=== PATIENT | female | born 1940 | race Caucasian/White ===

== ENCOUNTER 2017-05-23 09:05 | Emergency (ER) | payer OTHER ==
[~2017-05-23] VITALS: Ht 167.6 cm; Wt 81.7 kg
[2017-05-23] MEDS ORDERED: TENORMIN25 MG PO (09:23)
[2017-05-23] MEDS ORDERED: ANORO ELLIPTA1 EACH INH (09:24)
[2017-05-23] MEDS ORDERED: VITAMIN B-1250 MC2 PO (09:24)
[2017-05-23 09:39] LABS: ABSOLUTE EOSINOPHILS 0.2 thou/uL (0.0-0.7); ABSOLUTE LYMPHOCYTES 2.1 thou/uL (0.8-5.3); ABSOLUTE MONOCYTES 0.8 thou/uL (0.0-1.2); ABSOLUTE NEUTROPHILS 4.4 thou/uL (1.6-8.1); BASOPHILS 0.3 %; EOSINOPHILS 2.2 %; HEMATOCRIT 39.4 % (37.0-47.0); HEMOGLOBIN 13.3 gm/dL (12.0-15.0); LYMPHOCYTES 27.8 %; MCH 29.7 pg (26.0-34.0); MCHC 33.6 g/dL (28.0-37.0); MCV 88.3 fL (80.0-100.0); MONOCYTES 10.5 %; MPV 8.2 fl. (7.2-11.1); NUCLEATED RBCS 0 /100WBC; PLATELET COUNT* 349 thou/uL (150-400); POLYS 59.2 %; RBC 4.46 mil/uL (4.20-5.00); WBC 7.4 thou/uL (4.0-11.0)
[2017-05-23 09:46] LABS: CALCIUM 9.7 mg/dL (8.5-10.1); CREATININE 0.9 mg/dL (0.6-1.3); POTASSIUM 3.8 mmol/L (3.5-5.1)
[2017-05-23 09:51] LABS: ALBUMIN 3.2 g/dL (3.4-5.0); TOTAL BILIRUBIN 0.3 mg/dL (<0.1-1.0); TOTAL PROTEIN 7.3 g/dL (6.4-8.2)
[2017-05-23 10:50] VITALS: BP 140/79
--- NOTE | 2017-05-23 16:45 | EKG ---
[place] [address] ELECTROCARDIOGRAM REPORT Name: PRASAD JOHNSON Room: [facility]#: [id number] Admission: 05/23/17 Attend Phys: Discharge: 05/23/17 Date of : 38 Report #: [id number] THIS REPORT FOR: //name// [facility] ED Test Date: 2017-05-23 Test Time: 10:12:53 Pat Name: PRASAD JOHNSON Department: Room: Gender: F Anthropology Professor: Kirk PARKER : 1940 Requested By: Adolfo Garces Order Number: [id number] MD: Pacheco Renteria Measurements Intervals [place] Rate: 74 P: 53 GA: 164 QRS: 9 QRSD: 96 T: 61 QT: 380 QTc: 422 Interpretive Statements Sinus rhythm Baseline wander in lead(s) I,aVR,aVL No previous ECG available for comparison Electronically Signed On 05-23-2017 16:45:24 GREENHOUSE FLORIST by Pacheco Renteria [email or web address] <ELECTRONICALLY SIGNED> By: Pacheco Renteria MD, [facility] 05/23/17 1645 1012 Pacheco Renteria MD, FACC /EPI
== END 2017-05-23 10:51 | disposition home or self-care (01) ==
LOC: M.ERS 09:05
PROVIDERS: Family Medicine
DX: R22.0 Localized swelling, mass and lump, head (principal); Z90.710 Acquired absence of both cervix and uterus; Z88.6 Allergy status to analgesic agent; Z88.5 Allergy status to narcotic agent; Z91.041 Radiographic dye allergy status; Z88.0 Allergy status to penicillin; W18.39XA Other fall on same level, initial encounter; Y93.89 Activity, other specified; Y92.89 Other specified places as the place of occurrence of the external cause; Y99.8 Other external cause status

== ENCOUNTER 2018-02-04 08:21 | Inpatient (IN) | payer OTHER ==
[2018-02-04] VITALS (16 sets, daily range): BP systolic 115–169; BP diastolic 57–82
[~2018-02-04] VITALS: Ht 162.6 cm; Wt 97.1 kg
[~2018-02-04 08:21] MED LIST: ANORO ELLIPTA1 EACH INH; TENORMIN25 MG PO; VITAMIN B-1250 MC2 PO
[2018-02-04 08:39] LABS: ABSOLUTE BASOPHILS 0.1 thou/uL (0.0-0.2); ABSOLUTE EOSINOPHILS 0.1 thou/uL (0.0-0.7); ABSOLUTE LYMPHOCYTES 1.8 thou/uL (0.8-5.3); ABSOLUTE MONOCYTES 1.2 thou/uL (0.0-1.2); BASOPHILS 0.4 %; EOSINOPHILS 0.5 %; HEMATOCRIT 42.4 % (37.0-47.0); MCH 29.3 pg (26.0-34.0); MCV 88.9 fL (80.0-100.0); MONOCYTES 8.3 %; MPV 8.4 fl. (7.2-11.1); NUCLEATED RBCS 0 /100WBC; PLATELET COUNT* 310 thou/uL (150-400); POLYS 77.8 %; RBC 4.77 mil/uL (4.20-5.00); RDW-CV 15.2 % (10.5-14.5); WBC 14.2 thou/uL (4.0-11.0)
[2018-02-04 08:44] LABS: CREATININE 1.4 mg/dL (0.6-1.3); POTASSIUM 5.3 mmol/L (3.5-5.1)
[2018-02-04 08:48] LABS: ALBUMIN 3.9 g/dL (3.4-5.0); TOTAL BILIRUBIN 0.4 mg/dL (<0.1-1.0); TOTAL PROTEIN 7.8 g/dL (6.4-8.2)
[2018-02-04 08:53] LABS: SALICYLATE < 2.8 mg/dL (2.8-20.0)
[2018-02-04 08:54] LABS: ACETAMINOPHEN < 2 ug/mL (10-30); ALCOHOL < 10 mg/dL (<10)
[2018-02-04 09:30] LABS: BE -0.9 mmol/L (-2 to +3); HCO3 25.5 mmol/L (22.0-26.0); PCO2 48.8 mmHg (35.0-45.0); PO2 73.4 mmHg (75.0-100.0); pH 7.336 (7.340-7.450)
[2018-02-04 09:35] LABS: URINE BILIRUBIN NEGATIVE (Negative); URINE BLOOD TRACE (Negative); URINE CLARITY CLEAR; URINE COLOR YELLOW; URINE GLUCOSE-RANDOM NEGATIVE (Negative); URINE KETONES NEGATIVE (Negative); URINE NITRITE-REFLEX NEGATIVE (Negative); URINE PROTEIN NEGATIVE (Negative); URINE UROBILINOGEN 0.2 E.U./dl (0.2-1.0)
[2018-02-04 09:39] LABS: URINE LEUKOCYTES-REFLEX 3+ (Negative)
[2018-02-04 09:41] LABS: AMP/METHAMP Negative (Negative); BARBITURATES Negative (Negative); BENZODIAZEPINES Negative (Negative); COCAINE Negative (Negative); METHADONE Negative (Negative); OPIATES POSITIVE (Negative); PCP Negative (Negative); THC Negative (Negative)
[2018-02-04 09:46] LABS: CASTS None Seen /LPF (None Seen); CRYSTALS None Seen /LPF (None Seen); MUCUS None Seen strn/LPF (None Seen); SQUAMOUS 0-3 Few /LPF (0-3); URINE RBC 3-10 Few /HPF (0-2)
[2018-02-04] MEDS ORDERED: LEVOTHYROXINE PO (10:26)
[2018-02-04] MEDS ORDERED: FLONASE 0.05%50 MCG NASAL (10:26)
[2018-02-04] MEDS ORDERED: COREG6.25 MG PO (10:26)
[2018-02-04 15:11] LABS: NT-PRO BRAIN NAT PEPTIDE 608 pg/mL (<300); TROPONIN-I LEVEL <0.06 ng/mL (<0.06)
--- NOTE | 2018-02-04 18:14 | EKG ---
[place] [address] ELECTROCARDIOGRAM REPORT Name: PRASAD JOHNSON Room: [address] ADM IN .R.#: [id number] Admission: 02/04/18 Attend Phys: Valencia Israel Discharge: Date of : 38 Report #: [id number] THIS REPORT FOR: //name// [facility] ED Test Date: 2018-02-04 Test Time: 08:44:34 Pat Name: PRASAD JOHNSON Department: Room: [facility] Gender: F Infection Control Coordinator: ISAIAS : 1940 Requested By: Adolfo Garces Order Number: [id number] MD: Pacheco Renteria Measurements Intervals [place] Rate: 78 P: 42 IL: 163 QRS: 5 QRSD: 90 T: 53 QT: 363 QTc: 414 Interpretive Statements Sinus rhythm Probable left atrial enlargement Compared to ECG 05/23/2017 10:12:53 No significant changes Electronically Signed On 02-04-2018 18:14:20 CDT by Pacheco Renteria [email or web address] <ELECTRONICALLY SIGNED> By: Pacheco Renteria MD, [facility] 02/04/18 1814 Pacheco Renteria MD, [facility] /EPI
[2018-02-05] VITALS (11 sets, daily range): BP systolic 103–151; BP diastolic 46–78
[2018-02-05 10:05] LABS: HEMATOCRIT 35.3 % (37.0-47.0); MCH 29.2 pg (26.0-34.0); MCHC 32.7 g/dL (28.0-37.0); MCV 89.2 fL (80.0-100.0); MPV 8.5 fl. (7.2-11.1); NUCLEATED RBCS 0 /100WBC; PLATELET COUNT* 255 thou/uL (150-400); RBC 3.95 mil/uL (4.20-5.00); RDW-CV 15.3 % (10.5-14.5); WBC 13.3 thou/uL (4.0-11.0)
[2018-02-05 10:12] LABS: HEMOGLOBIN 11.5 gm/dL (12.0-15.0)
[2018-02-05 10:23] LABS: CALCIUM 8.7 mg/dL (8.5-10.1); CREATININE 1.3 mg/dL (0.6-1.3); POTASSIUM 4.4 mmol/L (3.5-5.1)
[2018-02-05 10:43] LABS: ABSOLUTE EOSINOPHILS 0.1 thou/uL (0.0-0.7); ABSOLUTE LYMPHOCYTES 1.6 thou/uL (0.8-5.3); ABSOLUTE MONOCYTES 0.4 thou/uL (0.0-1.2); ABSOLUTE NEUTROPHILS 11.2 thou/uL (1.6-8.1)
[2018-02-05 10:44] LABS: ANISOCYTOSIS 1+; PLATELET ESTIMATE ADEQUATE; POIKILOCYTOSIS 1+
[2018-02-06 04:45] LABS: URINE BILIRUBIN NEGATIVE (Negative); URINE BLOOD 2+ (Negative); URINE CLARITY CLEAR; URINE COLOR YELLOW; URINE GLUCOSE-RANDOM NEGATIVE (Negative); URINE KETONES TRACE (Negative); URINE LEUKOCYTES-REFLEX NEGATIVE (Negative); URINE NITRITE-REFLEX NEGATIVE (Negative); URINE PROTEIN TRACE (Negative); URINE SPECIFIC GRAVITY 1.025 (1.005-1.030); URINE UROBILINOGEN 0.2 E.U./dl (0.2-1.0)
[2018-02-06 05:15] LABS: BACTERIA-REFLEX 1-9 Few /HPF (None Seen); SQUAMOUS 4-10 Moderate /LPF (0-3); URINE WBC-REFLEX 0-5 Rare /HPF (0-5)
[2018-02-06 05:16] LABS: COARSE GRANULAR CASTS 0-3 Few /LPF (None Seen); CRYSTALS None Seen /LPF (None Seen); MUCUS 0-3 Light strn/LPF (None Seen)
[2018-02-07 04:30] VITALS: BP 135/68
[2018-02-07 08:00] VITALS: BP 144/79
[2018-02-07 16:29] VITALS: BP 153/73
[2018-02-07 18:54] LABS: HEMATOCRIT 41.8 % (37.0-47.0); MCH 29.4 pg (26.0-34.0); MCHC 32.2 g/dL (28.0-37.0); MCV 91.1 fL (80.0-100.0); MPV 9.1 fl. (7.2-11.1); RBC 4.59 mil/uL (4.20-5.00); RDW-CV 15.8 % (10.5-14.5); WBC 10.1 thou/uL (4.0-11.0)
[2018-02-07 18:55] LABS: HEMOGLOBIN 13.5 gm/dL (12.0-15.0)
[2018-02-07 18:56] LABS: ALBUMIN 2.9 g/dL (3.4-5.0); CREATININE 0.9 mg/dL (0.6-1.3); TOTAL BILIRUBIN 0.8 mg/dL (<0.1-1.0); TOTAL PROTEIN 7.2 g/dL (6.4-8.2)
[2018-02-07 20:00] VITALS: BP 150/69
[2018-02-08 04:40] LABS: HEMATOCRIT 35.2 % (37.0-47.0); HEMOGLOBIN 11.6 gm/dL (12.0-15.0); MCHC 32.9 g/dL (28.0-37.0); MCV 88.2 fL (80.0-100.0); MPV 8.7 fl. (7.2-11.1); RBC 3.99 mil/uL (4.20-5.00); RDW-CV 15.1 % (10.5-14.5); WBC 7.7 thou/uL (4.0-11.0)
[2018-02-08 04:57] LABS: ALBUMIN 2.7 g/dL (3.4-5.0); CALCIUM 8.9 mg/dL (8.5-10.1); CREATININE 0.8 mg/dL (0.6-1.3); TOTAL BILIRUBIN 0.6 mg/dL (<0.1-1.0); TOTAL PROTEIN 5.7 g/dL (6.4-8.2)
[2018-02-08 05:01] LABS: POTASSIUM 3.5 mmol/L (3.5-5.1)
[2018-02-08 09:00] VITALS: BP 170/90
[2018-02-08 20:00] VITALS: BP 157/84
[2018-02-09 04:56] LABS: HEMATOCRIT 34.3 % (37.0-47.0); HEMOGLOBIN 11.5 gm/dL (12.0-15.0); MCH 29.2 pg (26.0-34.0); MCHC 33.4 g/dL (28.0-37.0); MCV 87.5 fL (80.0-100.0); MPV 8.6 fl. (7.2-11.1); RBC 3.93 mil/uL (4.20-5.00); WBC 7.9 thou/uL (4.0-11.0)
[2018-02-09 05:46] LABS: ALBUMIN 2.5 g/dL (3.4-5.0); CALCIUM 8.7 mg/dL (8.5-10.1); CREATININE 0.8 mg/dL (0.6-1.3); POTASSIUM 3.3 mmol/L (3.5-5.1); TOTAL BILIRUBIN 0.4 mg/dL (<0.1-1.0); TOTAL PROTEIN 5.8 g/dL (6.4-8.2)
[2018-02-09 08:00] VITALS: BP 165/78
[2018-02-09] MEDS ORDERED: LEVAQUIN 750 M750 MG PO (15:37)
[2018-02-10] VITALS: BP 137/74
[2018-02-10 04:32] LABS: HEMATOCRIT 34.3 % (37.0-47.0); HEMOGLOBIN 11.5 gm/dL (12.0-15.0); MCH 29.4 pg (26.0-34.0); MCHC 33.6 g/dL (28.0-37.0); MCV 87.4 fL (80.0-100.0); MPV 8.4 fl. (7.2-11.1); RBC 3.92 mil/uL (4.20-5.00); WBC 10.6 thou/uL (4.0-11.0)
[2018-02-10 05:04] LABS: ALBUMIN 2.7 g/dL (3.4-5.0); CALCIUM 8.5 mg/dL (8.5-10.1); CREATININE 0.7 mg/dL (0.6-1.3); POTASSIUM 3.1 mmol/L (3.5-5.1); TOTAL BILIRUBIN 0.4 mg/dL (<0.1-1.0); TOTAL PROTEIN 6.2 g/dL (6.4-8.2)
[2018-02-10 09:00] VITALS: BP 165/91
[2018-02-10 15:22] VITALS: BP 165/91
[2018-02-10 15:40] VITALS: BP 148/83
[2018-02-10] MEDS ORDERED: LEVAQUIN 500 M500 M2 PO (15:47)
[2018-02-10] MEDS ORDERED: IPRAT-ALBUT 0.5-3 ML INH (15:51)
[2018-02-10 17:23] VITALS: BP 165/91
--- NOTE | 2018-02-12 14:44 | CON ---
[address] [address] CONSULTATION Name: PRASAD JOHNSON Room: [address] IN M.R.#: [id number] Admission: 02/04/18 Attend Phys: Valencia Israel Discharge: 02/10/18 Date of : 38 Report #: [id number] THIS REPORT FOR: //name// CC: Manish Dao DO DATE OF SERVICE: 02/08/2018 REFERRING PHYSICIAN: Panda Goodrich DO REASON FOR CONSULTATION: Abnormal CAT scan. IMPRESSION: 1. Abnormal CAT scan with dilated esophagus of uncertain etiology and significance - the patient is relatively asymptomatic from the same. 2. Recent suicide attempt. 3. Mild normocytic anemia without any gastrointestinal complaints. RECOMMENDATIONS: The patient has positive GI symptoms at this time, I recommended we proceed with a barium swallow with dissolvable capsule first and if this should demonstrate any evidence for a dilated esophagus or poor esophageal emptying, then we will proceed with upper endoscopy, possible Botox injection, possible other treatment or dilation. I discussed with the patient and her son at the bedside and they are agreeable to the same. HISTORY OF PRESENT ILLNESS: The patient is a pleasant 78-year-old white female, resident of a local senior care, who presented to the Emergency Room via EMS secondary to drug overdose and suicide attempt. She lives in an assisted care facility where she attempted overdose by taking hydrocodone and ibuprofen. She has recovered from the same. When she came to the Emergency Room, she underwent CT scan of the chest, which revealed dilated esophagus with fluid filling suggesting poor esophageal emptying. Despite this, she denies any complaints of any dysphagia, odynophagia, or postprandial pain, no problem with chronic reflux or indigestion. She does not recall ever having any endoscopic studies in the past. She is currently improving from the suicide attempt and doing well. ALLERGIES: None. MEDICATIONS: Atenolol, Ellipta and vitamin B12. She is supposed to be on some thyroid medication as well as nasal spray. PAST MEDICAL HISTORY: Hypertension, seasonal allergies, vitamin B12 deficiency. SOCIAL HISTORY: The patient does [place] [address] CONSULTATION Name: PRASAD JOHNSON Room: [address]#: [id number] Admission: 02/04/18 Attend Phys: Valencia Israel Discharge: 02/10/18 Date of : 38 Report #: [id number] FAMILY HISTORY: Negative. PHYSICAL EXAMINATION: GENERAL: Pleasant 78-year-old white female who is awake and alert. CARDIOPULMONARY: Revealed a regular rate and rhythm. Lungs were clear. ABDOMEN: Soft and not particularly tender. No rebound or guarding noted. LABORATORY DATA: Revealed a white count of 7.7, hemoglobin 11.6, platelet count 279,000, MCV is 88.2 and RDW is 15.1. Sodium 140, potassium 3.5, chloride 107, bicarbonate 25, BUN 23, creatinine 0.8, GFR is 69. Total bilirubin 0.6, alkaline phosphatase is 63, AST 24, ALT 22. Albumin is 2.7. Troponins are negative. Urinalysis is positive for opiates. CT scan is as above. DISCUSSION: At the present time, the patient has abnormal CAT scan with possible poor emptying of her esophagus. We will proceed with a barium swallow tomorrow and make further recommendations after reviewing the same. I discussed the plan with the patient as well and she is agreeable to the same. <ELECTRONICALLY SIGNED> By: David Chopra DO 02/12/18 1444 1754 [id number] Chopra DO /nt
--- NOTE | 2018-02-16 09:50 | CON ---
[address] [address] CONSULTATION Name: PRASAD JOHNSON Room: [address] IN M.R.#: [id number] Admission: 02/04/18 Attend Phys: Valencia Israel Discharge: 02/10/18 Date of : 38 Report #: [id number] THIS REPORT FOR: //name// CC: Manish Goodrich DATE OF SERVICE: 02/07/2018 HISTORY OF PRESENT ILLNESS: This is a 78-year-old female patient whose consultation was kindly requested by Dr. Fox to evaluate the patient for altered mental status. The patient does not provide any reliable history, but I talked to the patient's son. The patient apparently is in an independent living. She was admitted with a history of suicide attempt secondary to hydrocodone and ibuprofen. She was very confused day before and yesterday, but she has improved and the family indicates that she is 100% better. She never had this kind of episode before by data mean of any confusion and this was in relation to taking the medication. REVIEW OF SYSTEMS: Positive for all history of hepatitis, macular degeneration, hysterectomy. A few years ago, she had an episode of left-sided weakness as well as speech difficulty. Some workup was done in this patient. They are not totally certain what workup was done at that time. It is not clear whether a diagnosis of stroke was established that time or not. The patient thinks it was. The patient also is being treated for possible UTI. The records indicate she also has possible pneumonia. She is on antibiotics. REVIEW OF SYSTEMS: A 14-point review of system was carried out in this patient. She was admitted with intentional overdose and had some surgery in the past and was taking the medication for that. Otherwise, 14-point review of system was mostly noncontributory. PAST MEDICAL HISTORY: Positive for stroke-like symptom. FAMILY HISTORY: Unremarkable. SOCIAL HISTORY: According to the son, she was living in independent living and taking her own medication and she does not smoke or drink any alcohol. PHYSICAL EXAMINATION: Indicate she is alert. She is responsive. She can talk. She can tell me what month it is. She did not get the date correct. She did not know the hospital initially, but then she was able to tell the hospital. She can name the president, but intermittently still makes mistake. Cranial nerve examination 2-12 looks mostly unremarkable. Neuromuscular examinations look symmetrical and does not have any cerebellar sign. She did not cooperate with the fundus examination. I cannot tell about pulses. She has no edema, cyanosis or jaundice. Cardiac [place] [address] CONSULTATION Name: ALEXCARTERPRASAD R Room: [address] IN M.R.#: [id number] Admission: 02/04/18 Attend Phys: Valencia Israel Discharge: 02/10/18 Date of : 38 Report #: [id number] unremarkable. Blood pressure is 144/79, respirations 16, pulse 83, temperature is 98.8. She did have a CT scan of the head on admission and that did not show any intracranial abnormality. Her white count is somewhat up. IMPRESSION: This patient's present episode was most likely related to her medication. She is getting better and I do not think much need to be done in that regard. Prior history of stroke or transient ischemic attack is significant. That can be further worked up if the patient wants to do it. She did not allow much medication until yesterday. Today, she is allowing the medication. She is not much willing to have much workup done. We will check back next week and see if she is better and then further workup can be done. Thank you very much for this referral. <ELECTRONICALLY SIGNED> By: Víctor Grajeda MD 02/16/18 0950 [id number] Grajeda MD /nt
== END 2018-02-10 17:24 | DRG 871 ==
LOC: M.ERS 08:21 → M.ICU 10:16 → M.TBA-ER 10:16 → M.ICU 11:31 → M.ORTHSURG 02-05 17:58 → M.3W 02-06 16:17
PROVIDERS: Family Medicine; ADMIT Internal Medicine
PROC: BD11YZZ Fluoroscopy of Esophagus using Other Contrast (ICD-10-PCS; principal; 2018-02-09)
DX: A41.9 Sepsis, unspecified organism (principal); J69.0 Pneumonitis due to inhalation of food and vomit; J98.11 Atelectasis; N39.0 Urinary tract infection, site not specified; T40.2X2A Poisoning by other opioids, intentional self-harm, initial encounter; T39.312A Poisoning by propionic acid derivatives, intentional self-harm, initial encounter; H35.30 Unspecified macular degeneration; D64.9 Anemia, unspecified; I10 Essential (primary) hypertension; Y92.89 Other specified places as the place of occurrence of the external cause; Z90.710 Acquired absence of both cervix and uterus; Z79.899 Other long term (current) drug therapy; Z86.73 Personal history of transient ischemic attack (TIA), and cerebral infarction without residual deficits; Z88.0 Allergy status to penicillin; Z88.8 Allergy status to other drugs, medicaments and biological substances; Z88.1 Allergy status to other antibiotic agents

== ENCOUNTER 2018-03-14 06:19 | Inpatient (IN) | payer OTHER ==
[~2018-03-14] VITALS: Ht 167.6 cm; Wt 81.6 kg
[~2018-03-14 06:19] MED LIST changes: +COREG6.25 MG PO; +FLONASE 0.05%50 MCG NASAL; +IPRAT-ALBUT 0.5-3 ML INH; +LEVAQUIN 500 M500 M2 PO; +LEVAQUIN 750 M750 MG PO; +LEVOTHYROXINE PO
[2018-03-14 06:24] VITALS: BP 148/84
[2018-03-14] MEDS ORDERED: LEXAPRO 10 MG T10 M1 PO (06:32)
[2018-03-14] MEDS ORDERED: SYNTHROID150 MCG PO (06:32)
[2018-03-14] MEDS ORDERED: MAPAP500 MG PO (06:33)
[2018-03-14] MEDS ORDERED: TRAZODONE HCL100 MG PO (06:34)
[2018-03-14 06:53] LABS: ABSOLUTE BASOPHILS 0.1 thou/uL (0.0-0.2); ABSOLUTE EOSINOPHILS 0.1 thou/uL (0.0-0.7); ABSOLUTE LYMPHOCYTES 1.5 thou/uL (0.8-5.3); ABSOLUTE MONOCYTES 0.8 thou/uL (0.0-1.2); ABSOLUTE NEUTROPHILS 3.1 thou/uL (1.6-8.1); EOSINOPHILS 2.5 %; HEMATOCRIT 37.3 % (37.0-47.0); HEMOGLOBIN 12.3 gm/dL (12.0-15.0); LYMPHOCYTES 27.1 %; MCH 28.6 pg (26.0-34.0); MCV 86.5 fL (80.0-100.0); MPV 8.1 fl. (7.2-11.1); NUCLEATED RBCS 0 /100WBC; PLATELET COUNT* 358 thou/uL (150-400); POLYS 55.4 %; RBC 4.31 mil/uL (4.20-5.00); RDW-CV 15.1 % (10.5-14.5); WBC 5.5 thou/uL (4.0-11.0)
[2018-03-14 07:08] LABS: ANION GAP 7 mmol/L (7-16); BUN 12 mg/dL (7-18); CALCIUM 9.5 mg/dL (8.5-10.1); CHLORIDE 101 mmol/L (98-107); CO2 27 mmol/L (21-32); CREATININE 0.9 mg/dL (0.6-1.3); GLUCOSE 114 mg/dL (70-99); POTASSIUM 4.3 mmol/L (3.5-5.1); SODIUM 135 mmol/L (136-145)
[2018-03-14 07:10] LABS: PROTIME 10.7 Seconds (9.20-11.50)
[2018-03-14 07:19] LABS: ALBUMIN 3.4 g/dL (3.4-5.0); ALKALINE PHOSPHATASE 73 U/L (46-116); NT-PRO BRAIN NAT PEPTIDE 97 pg/mL (<300); SGOT 22 U/L (15-37); SGPT 24 U/L (30-65); TOTAL BILIRUBIN 0.5 mg/dL (<0.1-1.0); TOTAL PROTEIN 7.7 g/dL (6.4-8.2); TROPONIN-I LEVEL <0.06 ng/mL (<0.06)
[2018-03-14 09:02] LABS: URINE BILIRUBIN NEGATIVE (Negative); URINE BLOOD NEGATIVE (Negative); URINE CLARITY CLEAR; URINE COLOR YELLOW; URINE GLUCOSE-RANDOM NEGATIVE (Negative); URINE KETONES NEGATIVE (Negative); URINE LEUKOCYTES-REFLEX TRACE (Negative); URINE NITRITE-REFLEX NEGATIVE (Negative); URINE PROTEIN NEGATIVE (Negative); URINE UROBILINOGEN 0.2 E.U./dl (0.2-1.0)
[2018-03-14 09:22] VITALS: BP 155/80
[2018-03-14 09:29] LABS: BACTERIA-REFLEX 1-9 Few /HPF (None Seen); CASTS None Seen /LPF (None Seen); CRYSTALS None Seen /LPF (None Seen); MUCUS 0-3 Light strn/LPF (None Seen); SQUAMOUS 0-3 Few /LPF (0-3); URINE RBC 0-2 Rare /HPF (0-2); URINE WBC-REFLEX 0-5 Rare /HPF (0-5)
[2018-03-14 09:43] VITALS: BP 153/67
--- NOTE | 2018-03-14 11:33 | NUR ---
PATIENT CAME TO THE FLOOR VIA CART FROM THE ER IN STABLE CONDITION. PAIN IS 7 OUT OF 10 WHEN MOVING AND 5 OUT OF 10 WHEN LYING STILL. VITAL SIGNS STABLE ON ROOM AIR. ADMISSION ASSESSMENT AND ROOM ORIENTATION DONE, WITH QUESTIONS ANSWERED. PATIENT STATED "i LIVE IN ASSISTED LIVING" DURING ASSESSMENT A BRACELET IS ON HER ANKLE THAT KEEPS "ME FROM GETTING OUT THE DOOR AT THE [facility]". CALL LIGHT IS IN REACH, PAIN MEDICATION GIVEN, WILL CONTINUE TO MONITOR.
[2018-03-14 16:14] VITALS: BP 160/85
--- NOTE | 2018-03-14 17:23 | NUR ---
PATIENT HAS BEEN ALERT AND ORIENTED TODAY, COMPLAINS OF PAIN BUT STATED IT WAS FEELING BETTER AFTER MEDS. PATIENT REPOSITIONED OFTEN TO TRY TO HELP. VITAL SIGNS HAVE BEEN STABLE IN ROOM AIR. CALL LIGHT IS IN REACH, WILL CONTINUE TO MONITOR.
[2018-03-15 00:31] VITALS: BP 143/64
[2018-03-15 03:51] LABS: HEMATOCRIT 34.9 % (37.0-47.0); HEMOGLOBIN 11.4 gm/dL (12.0-15.0); MCH 28.5 pg (26.0-34.0); MCHC 32.7 g/dL (28.0-37.0); MCV 86.9 fL (80.0-100.0); MPV 8.3 fl. (7.2-11.1); RBC 4.01 mil/uL (4.20-5.00); RDW-CV 15.3 % (10.5-14.5); WBC 5.7 thou/uL (4.0-11.0)
[2018-03-15 04:02] LABS: CALCIUM 9.1 mg/dL (8.5-10.1); CREATININE 0.8 mg/dL (0.6-1.3); MAGNESIUM 1.9 mg/dL (1.8-2.4); POTASSIUM 4.2 mmol/L (3.5-5.1)
--- NOTE | 2018-03-15 06:22 | NUR ---
PATIENT SAT IN RECLINER AND SLEPT FIRST PART OF THE EVENING. PT THEN DECIDED SHE WANTED IN BED. PT UP WITH G.BELT AND ASSIST OF TWO. PT VOIDS YELLOW URINE PER URINAL. PT GIVEN TRAMADOL AT HS FOR PAIN. PT DENIES PAIN AT THIS TIME. PT ABLE TO SWALLOW PILLS WITH NO PROBLEMS. PT DENIES NEEDS AT THIS TIME. FREQUENTLY USED ITEMS AND CALL LIGHT WITHIN REACH. SIDERAILS UPX2 AND BED ALARM ON. WILL CONTINUE TO MONITOR.
[2018-03-15 07:50] VITALS: BP 138/72
[2018-03-15 17:06] VITALS: BP 134/63
--- NOTE | 2018-03-15 18:20 | NUR ---
PATIENT IS ALERT AND ORIENTED TODAY, PLEASANT. UP WITH WALKER, WALKED TO THE RESTROOM TODAY. APPETITE IS GOOD TODAY, SOME PAIN THAT IS CONTROLLED WITH ORAL PAIN MEDICATIONS. VITAL SIGNS STABLE ON ROOM AIR. CALL LIGHT IS IN REACH, WILL CONTINUE TO MONITOR.
[2018-03-16] VITALS: BP 155/73
[2018-03-16 04:20] LABS: HEMATOCRIT 34.3 % (37.0-47.0); HEMOGLOBIN 11.3 gm/dL (12.0-15.0); MCH 28.4 pg (26.0-34.0); MPV 8.4 fl. (7.2-11.1); RBC 3.99 mil/uL (4.20-5.00); RDW-CV 15.2 % (10.5-14.5); WBC 5.3 thou/uL (4.0-11.0)
--- NOTE | 2018-03-16 04:31 | NUR ---
PATIENT SLEPT WELL FIRST PART OF THE NIGHT. PT USES CALL LIGHT APPROPRIATELY FOR ASSISTANCE TO BSC. PT TO BSC WITH LUCIE, WALKER AND TWO STAFF. PT VERY STIFF AND UNABLE TO PIVOT TO BSC WITHOUT ASSISTANCE. PT VOIDED YELLOW URINE AND ASSISTED BACK TO BED. PT WAS CONFUSED AT TIMES DURING THE NIGHT SAYING SHE WANTED ASSISTANCE PUTTING ON HER CLOTHES SO SHE COULD GO TO [facility]. PT REORIENTED TO PLACE AND TIME. PT SAID SHE KNEW SHE WAS AT [facility]. PT ABLE TO REPOSITION HERSELF IN BED. PT WITH SALINE LOCK IN RT HAND. PT REQUESTED PAIN MEDICATION X1 AND RECEIVED OXYIR 5MG PO. FREQUENTLY USED ITEMS AND CALL LIGHT WITHIN REACH. SIDERAILS UPX4 AND BED ALARM ON. WILL CONTINUE TO MONITOR.
[2018-03-16 04:37] LABS: CALCIUM 9.4 mg/dL (8.5-10.1); CREATININE 0.9 mg/dL (0.6-1.3); MAGNESIUM 1.8 mg/dL (1.8-2.4); PHOSPHORUS* 3.6 mg/dL (2.5-4.9); POTASSIUM 4.1 mmol/L (3.5-5.1)
[2018-03-16 07:53] VITALS: BP 139/77
--- NOTE | 2018-03-16 09:57 | EKG ---
[place] [address] ELECTROCARDIOGRAM REPORT Name: PRASAD JOHNSON Room: [address] ADM IN .R.#: [id number] Admission: 03/14/18 Attend Phys: Valencia Israel Discharge: Date of : 38 Report #: [id number] THIS REPORT FOR: //name// [facility] ED Test Date: 2018-03-14 Test Time: 06:39:41 Pat Name: PRASAD JOHNSON Department: Room: [facility] Gender: F Consultant Dietitian: Henna JAY : 1940 Requested By: Miguelina Arriaga Order Number: [id number] MD: Pacheco Renteria Measurements Intervals [place] Rate: 77 P: 52 [place]: 152 QRS: 2 QRSD: 88 T: 47 QT: 378 QTc: 428 Interpretive Statements Sinus rhythm Baseline wander in lead(s) V3 Compared to ECG 02/04/2018 08:44:34 No significant changes Electronically Signed On 03-16-2018 9:56:54 RUBBER OFF by Pacheco Renteria [email or web address] <ELECTRONICALLY SIGNED> By: Pacheco Renteria MD, [facility] 03/16/18 0956 [id number] [id number] Pacheco Renteria MD, [facility] /EPI
[2018-03-16] MEDS ORDERED: TRAMADOL 50 MG50 MG PO (14:02)
[2018-03-16] MEDS ORDERED: GABAPENTIN 100100 MG PO (14:03)
[2018-03-16] MEDS ORDERED: LEVAQUIN 500 M500 M2 PO (14:03)
[2018-03-16] MEDS ORDERED: MIRALAX17 GM PO (14:04)
[2018-03-16] MEDS ORDERED: COLACE100 MG PO (14:05)
[2018-03-16 14:07] VITALS: BP 139/77
--- NOTE | 2018-03-16 14:54 | NUR ---
PATIENT REMAINED ALERT AND ORIENTED THROUGHOUT SHIFT. PAIN WAS MINIMAL AND MANAGED WITH ORAL MEDICATIONS. ALL CHARTING AND ASSESSMENTS COMPLETED BY ANKITA Aguillon RN HAVE BEEN REVIEWED AND I AGREE WITH THEM. PATIENT WORKED WITH THERAPIES TODAY AND HAS BEEN CLEARED TO DISCHARGE BACK TO ASSISTED LIVING. HER SON CAME TO TRANSPORT HER TO THE [facility], ALL PERSONAL BELONGINGS, PRESCRIPTIONA ND DISCHARGE INFORMATION SENT WITH THEM UPON DISCHARGE.
== END 2018-03-16 14:35 | disposition home or self-care (01) | DRG 543 ==
LOC: M.ERS 06:19 → M.3W 08:29 → M.TBA-ER 08:29 → M.3W 09:31
PROVIDERS: Emergency Medicine; ADMIT Internal Medicine
DX: M80.88XA Other osteoporosis with current pathological fracture, vertebra(e), initial encounter for fracture (principal); E87.1 Hypo-osmolality and hyponatremia; N39.0 Urinary tract infection, site not specified; F32.9 Major depressive disorder, single episode, unspecified; E03.9 Hypothyroidism, unspecified; H35.30 Unspecified macular degeneration; Z90.710 Acquired absence of both cervix and uterus; Z79.899 Other long term (current) drug therapy; Z88.0 Allergy status to penicillin; Z88.1 Allergy status to other antibiotic agents; Z88.6 Allergy status to analgesic agent; Z88.8 Allergy status to other drugs, medicaments and biological substances; W18.39XA Other fall on same level, initial encounter; Y93.89 Activity, other specified; Y92.89 Other specified places as the place of occurrence of the external cause; Y99.8 Other external cause status

== ENCOUNTER 2020-01-14 19:12 | Emergency (ER) | payer MEDICARE ==
[~2020-01-14] VITALS: Ht 170.2 cm; Wt 84.9 kg
[~2020-01-14 19:12] MED LIST changes: +COLACE100 MG PO; +GABAPENTIN 100100 MG PO; +LEXAPRO 10 MG T10 M1 PO; +MAPAP500 MG PO; +MIRALAX17 GM PO; +SYNTHROID150 MCG PO; +TRAMADOL 50 MG50 MG PO; +TRAZODONE HCL100 MG PO
[2020-01-14] MEDS ORDERED: CHILDREN'S ZYRT10 M1 PO (19:18)
[2020-01-14] MEDS ORDERED: NAMENDA 5 MG TAB5 M1 PO (19:19)
[2020-01-14 19:33] LABS: ABSOLUTE BASOPHILS 0.1 thou/uL (0.0-0.2); ABSOLUTE EOSINOPHILS 0.2 thou/uL (0.0-0.7); ABSOLUTE LYMPHOCYTES 2.5 thou/uL (0.8-5.3); ABSOLUTE MONOCYTES 0.9 thou/uL (0.0-1.2); ABSOLUTE NEUTROPHILS 3.6 thou/uL (1.6-8.1); BASOPHILS 1.1 %; EOSINOPHILS 2.2 %; HEMATOCRIT 39.6 % (37.0-47.0); HEMOGLOBIN 13.3 gm/dL (12.0-15.0); LYMPHOCYTES 35.1 %; MCH 29.9 pg (26.0-34.0); MCHC 33.6 g/dL (28.0-37.0); MCV 88.8 fL (80.0-100.0); MONOCYTES 12.5 %; MPV 8.3 fl. (7.2-11.1); NUCLEATED RBCS 0 /100WBC; PLATELET COUNT* 268 thou/uL (150-400); POLYS 49.1 %; RBC 4.46 mil/uL (4.20-5.00); RDW-CV 14.9 % (10.5-14.5); WBC 7.2 thou/uL (4.0-11.0)
[2020-01-14 19:41] LABS: APTT 25.7 Seconds (25.0-31.3); PROTIME 10.2 Seconds (9.20-11.50)
[2020-01-14 19:44] LABS: CALCIUM 8.4 mg/dL (8.5-10.1); CREATININE 1.1 mg/dL (0.6-1.3); POTASSIUM 4.4 mmol/L (3.5-5.1)
[2020-01-14 19:46] LABS: ALBUMIN 3.4 g/dL (3.4-5.0); TOTAL BILIRUBIN 0.2 mg/dL (<0.1-1.0); TOTAL PROTEIN 6.9 g/dL (6.4-8.2)
[2020-01-14 21:22] VITALS: BP 140/65
--- NOTE | 2020-01-15 10:10 | EKG ---
[place] [address] ELECTROCARDIOGRAM REPORT Name: ALEXPRASAD R Room: [facility]#: [id number] Admission: 01/14/20 Attend Phys: Discharge: 01/14/20 Date of : 38 Date of Service: 01/14/201940 Report #: [id number] THIS REPORT FOR: //name// [facility] ED Test Date: 2020-01-14 Test Time: 19:41:50 Pat Name: PRASAD JOHNSON Department: Room: Gender: F Trouble Operator: SAUNDERS : 1940 Requested By: Adolfo Garces Order Number: [id number] MD: Pacheco Renteria Measurements Intervals [place] Rate: 80 P: 75 IL: 147 QRS: 15 QRSD: 93 T: 71 QT: 376 QTc: 434 Interpretive Statements Sinus rhythm Baseline wander in lead(s) II,III,aVF,V6 Compared to ECG 03/14/2018 06:39:41 No significant changes Electronically Signed On 01-15-2020 10:10:16 CDT by Pacheco Renteria [email or web address] <ELECTRONICALLY SIGNED> By: Pacheco Renteria MD, [facility]AC 01/15/20 1010 [id number] 40 aPcheco Renteria MD, [facility] /EPI
== END 2020-01-14 21:46 | disposition home or self-care (01) ==
LOC: M.ERS 19:12
PROVIDERS: Family Medicine
DX: S00.83XA Contusion of other part of head, initial encounter (principal); E03.9 Hypothyroidism, unspecified; Z88.1 Allergy status to other antibiotic agents; Z88.5 Allergy status to narcotic agent; Z88.6 Allergy status to analgesic agent; Z90.710 Acquired absence of both cervix and uterus; Z88.0 Allergy status to penicillin; W18.39XA Other fall on same level, initial encounter; Y93.89 Activity, other specified; Y92.128 Other place in nursing home as the place of occurrence of the external cause; Y99.8 Other external cause status